=== PATIENT | female | born 1975 | race Caucasian/White ===

== ENCOUNTER 2019-05-07 10:26 | Emergency (ER) | payer MEDICARE, MEDICAID, SELFPAY ==
[2019-05-07 10:57] VITALS: BP 140/107; PULSE 101; RESP 16; TEMP 37; O2SAT 97
--- NOTE | 2019-05-07 11:33 | ED.GENADULT ---
HPI - General Adult General Chief complaint: Ear Stated complaint: EARACHE/EYE DRAINAGE Time Seen by Provider: 05/07/19 11:34 Source: patient and RN notes reviewed Mode of arrival: ambulatory Limitations: no limitations History of Present Illness HPI narrative: This is a 43 years old female presented office for evaluation of earpain for a fewdays. Pain is worse today with decrease hearing. She was diagnosed with influenza 4 days ago. Stated she had influenza vaccine in January and still get the flu. She does not smoke.She has been alternate Tylenol and ibuprofen for her symptoms with minimal relief. Related Data Home Medications Medication Instructions Recorded Confirmed aripiprazole 10 mg tablet 10 mg PO DAILY 04/07/19 05/07/19 dextroamphetamine-amphetamine 30 30 mg PO DAILY 04/07/19 05/07/19 mg tablet hydrocodone 10 mg-acetaminophen 1 tablet PO Q6-8H PRN tablet 04/07/19 05/07/19 325 mg tablet tizanidine 4 mg tablet 4 mg PO TID PRN 04/07/19 05/07/19 venlafaxine 75 mg tablet 150 mg PO BID tablet 04/07/19 05/07/19 Allergies Allergy/AdvReac Type Severity Reaction Status Date / Time PROPOXYPHENE NAPSYLATE Allergy Unknown SEVERE Uncoded 05/07/19 10:51 NAUSEA AND RASH Review of Systems Review of Systems: Narrative: CONSTITUTIONAL: Denies fever EYES: Denies visual changes, redness, discharge however she reports matted eyelashes when she woke up in the morning ENT: Denies rhinorrhea, congestion, sore throat, otalgia. CARDIOVASCULAR: Denies chest pain, palpitation, edema. RESPIRATORY: Denies dyspnea, wheezing. Reports a little cough GASTROINTESTINAL: Denies abdominal pain, nausea, vomiting, diarrhea. GENITOURINARY: Denies urinary symptoms or discharge SKIN: Denies rash MUSCULOSKELETAL: Denies acute back pain NEUROLOGIC: Denies lightheaded PMFSH Family History Family History Mother Hypertension Family history of diabetes mellitus in first degree relative Family history of heart disease in male family member before age 55 Diabetes mellitus Family history of cardiovascular disease, Onset Age: 53 Acute myocardial infarction, Onset Age: 53 Family history of coronary artery disease, Onset Age: 53 Family history of type 2 diabetes mellitus, Onset Age: 53 Patient's mother is , Onset Age: 53 Father Diabetes mellitus, Onset Age: 72 Hypertension, Onset Age: 72 Family history of cardiovascular disease, Onset Age: 72 Patient's father is in good health Family history of primary malignant neoplasm of liver Other Cerebrovascular accident Family history of allergic disorder Family history of malignant neoplasm Social History Social History Smoking status: Never smoker Second hand tobacco smoke exposure: No Alcohol intake: current Comments At time of signature, I agree with nursing past medical, surgical, social and family history. There is no relevant family history pertinent to the presenting complaint. Exam Narrative: Exam Narrative: GENERAL: This is a well-nourished, well-developed patient, in no apparent distress. EYES: SHAMIR. EMOI. Sclera clear/white without discharge. Vision is grossly intact. EARS: External ears normal, auditory canals clear and without drainage, right TM noted fluid level. Left TM bulging and erythema without perforation. Hearing grossly intact. NOSE: External nose normal with no obvious nasal discharge, nares without redness, no rhinorrhea. THROAT: Mucous membranes moist, posterior pharynx slight erythema and edematous NECK: Neck supple, non-tender without lymphadenopathy, masses or thyromegaly. CARDIOVASCULAR: Regular rate and rhythm without murmurs, gallops, or rubs. RESPIRATORY: Clear to auscultation. Breath sounds equal bilaterally. No wheezes, rales, or rhonchi. GASTROINTESTINAL: Abdomen soft, non-tender, nondistended. Ina
== END 2019-05-07 11:51 | disposition home or self-care (01) ==
PROVIDERS: Emergency Provider Nurse Practitioner; PCP Internal Medicine
DX: H66.92 Otitis media, unspecified, left ear (principal); I10 Essential (primary) hypertension; G35 Multiple sclerosis; E03.9 Hypothyroidism, unspecified; F90.9 Attention-deficit hyperactivity disorder, unspecified type; F31.9 Bipolar disorder, unspecified
CPT/HCPCS: 99213; G0463

== ENCOUNTER 2020-02-05 12:36 | Outpatient (CLI) | payer MEDICARE, MEDICAID, SELFPAY ==
--- NOTE | ~2020-02-05 | MMUS_ITS ---
EXAMINATION: MM diagnostic radha BI w geovanna, US breast RT limited HISTORY: Pain in the upper outer quadrant of the right breast and one episode of right nipple dischar ge TECHNIQUE: Craniocaudal, mediolateral, and mediolateral oblique 3-D tomosynthesis images of the breas ts were performed and synthetic 2-D images were generated. CAD analysis was submitted and interpreted . High resolution limited right breast ultrasound was performed. COMPARISON: 03/31/2017, 12/17/2014 BREAST PARENCHYMAL COMPOSITION: The breasts are almost entirely fatty. FINDINGS: MAMMOGRAPHIC FINDINGS: Focal asymmetry in the middle third of the upper outer quadrant of the right breast persists but is d ecreased in size since the comparison examinations. No suspicious mass, calcification, or architectur al distortion are identified. There is no mammographic correlate for the patient's reported right noble ast pain. ULTRASOUND: There is no evidence of focal suspicious solid or cystic lesion in the vicinity of the patient's righ t breast pain. Cysts measuring 5 mm and 4 mm are present at the 11:00 location 6 cm from the nipple. IMPRESSION: 1. No suspicious mammographic or sonographic correlate is identified for the patient's reported right breast pain and nipple discharge Further evaluation at this time should be based on clinical assessm ent. Continued follow-up physical examination is recommended. 2. Recommend routine screening mammography in one year. BI-RADS Category 2: Benign finding(s). Reviewed, dictated and finalized at location A. INAL BLOCK ASSEMBLER IMPRESSION: 1. No suspicious mammographic or sonographic correlate is identified for the junior benítez's reported right breast pain and nipple discharge Further evaluation at t his time should be based on clinical assessment. Continued follow-up physical e xamination is recommended. 2. Recommend routine screening mammography in one year. BI-RADS Category 2: Benign finding(s).
== END 2020-02-05 12:37 | disposition home or self-care (01) ==
PROVIDERS: PCP Obstetrics & Gynecology; Visit Provider Obstetrics & Gynecology
DX: N64.4 Mastodynia (principal)
CPT/HCPCS: 76642; 77062; 77066; G0279

== ENCOUNTER 2020-02-08 14:11 | Outpatient (CLI) | payer MEDICARE, MEDICAID, SELFPAY ==
[2020-02-11 16:16] LABS: Amphetamines negative; Barbiturates negative; Benzodiazepines negative; Cocaine Metabolites negative; Marijuana Metabolites negative; PCP negative
== END 2020-02-08 14:12 | disposition home or self-care (01) ==
LOC: ANHLAB 14:15
PROVIDERS: PCP Obstetrics & Gynecology
DX: Z79.899 Other long term (current) drug therapy (principal)
CPT/HCPCS: 80307

== ENCOUNTER 2020-03-27 11:38 | Outpatient (CLI) | payer MEDICARE, MEDICAID, SELFPAY ==
--- NOTE | ~2020-03-27 | XR_ITS ---
EXAMINATION: XR cervical spine 4-5V EXAM DATE: 03/27/2020 12:08 INDICATION: Radiculopathy lumbar and cervical spine. TECHNIQUE: Cervical spine frontal, lateral, lateral swimmers, and open-mouth odontoid projections. C omparison is made to prior examination from 10/12/2008. FINDINGS: Mild disc disease C4-5. The vertebral bodies are aligned in the AP dimension. Mild to mode rate cervical facet arthropathy. Mild cervical dextroscoliosis. Prevertebral soft tissue and pre-dens space are within normal limits. The odontoid process is intact. The lateral masses of C1 line up wi th C2. Mild progression spondylosis and scoliosis compared to 2008. IMPRESSION: Mild to moderate cervical arthropathy. Mild dextroscoliosis. Reviewed, dictated and finalized at location A. E EDUCATOR
--- NOTE | ~2020-03-27 | XR_ITS ---
EXAMINATION: XR lumbar spine 2-3V EXAM DATE: 03/27/2020 12:09 INDICATION: Lumbar radiculopathy. TECHNIQUE: Lumber spine frontal, lateral, lateral L5-S1 projections for interpretation. There is no prior study for comparison. FINDINGS: There is mild to moderate L5-S1 disc disease with 3 mm anterolisthesis L5 on S1. Mild disc disease of the upper lumbar spine. No spondylolysis. There is moderate facet arthropathy at L4-5, mi ld at the other lumbar levels. Sacrum, sacroiliac joints, sacral arcuate lines are intact. Paraspinal soft tissue is unremarkable. Neural foramen appear widely patent. IMPRESSION: 1. Mild to moderate lumbar spondylosis. 2. L5-S1 grade 1 anterolisthesis. Reviewed, dictated and finalized at location A. NG SUPPORT WORKER
== END 2020-03-27 11:39 | disposition home or self-care (01) ==
PROVIDERS: Visit Provider Pain Medicine Interventional Pain Medicine
DX: Z79.891 Long term (current) use of opiate analgesic (principal); Z13.89 Encounter for screening for other disorder; M47.26 Other spondylosis with radiculopathy, lumbar region
CPT/HCPCS: 72050; 72100

== ENCOUNTER 2021-09-18 15:19 | Outpatient (CLI) | payer MEDICARE, MEDICAID, SELFPAY ==
--- NOTE | ~2021-09-18 | XR_ITS ---
XR lumbar spine 2-3V DATE: 09/18/2021 15:53 INDICATION: Right back pain, radiculopathy. TECHNIQUE: AP, lateral, coned lateral lumbosacral views COMPARISON: 06/07/2017 PA and lateral chest FINDINGS: There are 4 functional lumbar vertebra, due to sacralized L5.. The lumbar vertebrae are nor deepali aligned. No fracture or bone destruction or spondylolisthesis. Moderate degenerative disc disease at L4-sacralized L5. Remaining lumbar interspaces are relatively well preserved. Degenerative spurring at the lower lumbar facet joints. The sacroiliac joints are intact. IMPRESSION: Sacralized L5 Moderate degenerative disc disease and apophyseal joint spurring at L4-5 Reviewed, dictated and finalized at location B.
--- NOTE | ~2021-09-18 | XR_ITS ---
EXAMINATION:XR cervical spine 4-5V DATE: 09/18/2021 15:54 INDICATION: Neck pain TECHNIQUE: AP, lateral, lateral swimmers and odontoid views of the cervical spine are provided. COMPARISON: None FINDINGS: There are 2 mm of anterolisthesis of C4 on C5 and C5 on C6. There is mild loss of intervert ebral disc space height at C4-5. No fracture is identified. The vertebral body heights are maintained . There is mild to moderate multilevel facet and uncovertebral joint osteoarthritis. Prevertebral sof t tissues are normal. IMPRESSION: 1. Mild to moderate cervical spondylosis without acute findings or significant interval change. Reviewed, dictated and finalized at location F.
== END 2021-09-18 15:20 | disposition home or self-care (01) ==
PROVIDERS: PCP Physician Assistant; Visit Provider Pain Medicine Interventional Pain Medicine
DX: Z79.891 Long term (current) use of opiate analgesic (principal); G89.4 Chronic pain syndrome; Z13.89 Encounter for screening for other disorder; M51.36 Other intervertebral disc degeneration, lumbar region; M47.22 Other spondylosis with radiculopathy, cervical region
CPT/HCPCS: 72050; 72100

== ENCOUNTER 2023-04-06 12:03 | Outpatient (CLI) | payer MEDICARE, MEDICAID, SELFPAY ==
--- NOTE | ~2023-04-06 | XR_ITS ---
Lumbosacral Spine: AP and lateral views Clinical History: Pain Findings: The normal lordotic curve is maintained. No fracture evident. Minimal grade 1 anterolisthes is of L4 over L5 present. There is mild facet arthropathy at the lower lumbar spine. The intervertebr al disc spaces are preserved. The sacroiliac joints are normally outlined. Impression: Minimal grade 1 anterolisthesis of L4 over L5. Mild facet arthropathy, as above. Reviewed, dictated and finalized at location M. Y FEED WORKER Impression: Minimal grade 1 anterolisthesis of L4 over L5. Mild facet arthropathy, as above.
--- NOTE | ~2023-04-06 | XR_ITS ---
Cervical Spine: AP, lateral, open-mouth views Clinical History: Pain Findings: No fracture evident. There is 4 mm anterolisthesis of C4 over C5. There is moderate to adva nced degenerative disc narrowing at C6-C7. The remaining intervertebral disc spaces are well maintain ed. Pre-vertebral soft tissues are unremarkable. Impression: 4 mm anterolisthesis of C4 over C5. Moderate to advanced degenerative disc narrowing at C6-C7. Reviewed, dictated and finalized at location . CTOR BROADCAST Impression: 4 mm anterolisthesis of C4 over C5. Moderate to advanced degenerative disc narrowing at C6-C7.
== END 2023-04-06 12:04 | disposition home or self-care (01) ==
PROVIDERS: PCP Pain Medicine Interventional Pain Medicine; Visit Provider Pain Medicine Interventional Pain Medicine
DX: M54.17 Radiculopathy, lumbosacral region (principal); M54.12 Radiculopathy, cervical region; M43.16 Spondylolisthesis, lumbar region; M48.02 Spinal stenosis, cervical region
CPT/HCPCS: 72040; 72100

== ENCOUNTER 2024-07-13 17:11 | Outpatient (CLI) | payer MEDICARE, SELFPAY ==
--- NOTE | ~2024-07-13 | XR_ITS ---
HISTORY: PAIN IN KNEE, HIP, RADICULOPATHY OF CERVICAL AND LUMBOSACRAL COMPARISON: 04/06/2023 TECHNIQUE: 3 views of the cervical spine were performed FINDINGS: Visualization of the cervical spine to the inferior endplate of C6. Straightening of the normal curvature of the cervical spine is identified. 2.4 mm of anterolisthesis of C4 over C5 with 4.1 mm of anterolisthesis of C5 over C6. No prevertebral soft tissue swelling is appreciated. No acute compression fracture is noted. The dens is equidistant between the pillars, without asymmetry. Air column within the trachea is midline. IMPRESSION: Progression of degenerative disease within the cervical spine, as detailed above. Examination is limited as the cervical spine is only visualized to the inferior endplate of C6, and a t the patient's jewelry was not removed. Cross-sectional imaging is recommended, if the patient is clinically able, preferably with MRI. Reviewed, dictated and finalized at location A. IMPRESSION: Progression of degenerative disease within the cervical spine, as detailed abov e. Examination is limited as the cervical spine is only visualized to the inferior endplate of C6, and at the patient's jewelry was not removed. Cross-sectional imaging is recommended, if the patient is clinically able, pref erably with MRI.
--- NOTE | ~2024-07-13 | XR_ITS ---
HISTORY: KNEE PAIN COMPARISON: 08/24/2016 TECHNIQUE: 3 views of the right knee were performed FINDINGS: No acute or subacute fracture, erosion, lytic or sclerotic lesion. Medial tibiofemoral joint space narrowing is identified, demonstrating progression from prior. No suprapatellar joint effusion is identified. The infrapatellar joint space is clear. IMPRESSION: Degenerative disease, without acute fracture. Reviewed, dictated and finalized at location A.
--- NOTE | ~2024-07-13 | XR_ITS ---
HISTORY: PAIN IN KNEE, HIP, RADICULOPATHY OF CERVICAL AND LUMBOSACRAL COMPARISON: 04/06/2023 TECHNIQUE: 2 view lumbar spine. FINDINGS: Grade 1 anterolisthesis of L4 over L5. Grade 1 anterolisthesis of L5 over S1 (an interval change). Remaining lumbar vertebral bodies are otherwise normally aligned. There are 5 non-rib bearing lumbar vertebral bodies. Disc spaces and vertebral body heights are well maintained. There are no lytic or sclerotic lesions. Paraspinal soft tissues are unremarkable. Significant facet arthropathy is noted, specifically within the lower lumbar spine demonstrating prog ression from prior examination. IMPRESSION: Grade 1 anterolisthesis of L4 over L5 and L5 over S1. Significant facet arthropathy demonstrating progression from prior examination. Reviewed, dictated and finalized at location A.
--- NOTE | ~2024-07-13 | XR_ITS ---
CORRECTED REPORT corrected examination description [facility] 07/14/24 This report was recreated on 07/14/24. Original report was HISTORY: PAIN IN KNEE, HIP, RADICULOPATHY OF CERVICAL AND LUMBOSACRAL COMPARISON: None TECHNIQUE: 3 views of the left hip FINDINGS: No acute fracture or dislocation is identified. Superior lateral narrowing of the femoral acetabular joint space without sclerosis is present suggesting mild osteoarthritis. Degenerative disease within the lower lumbar spine. Age-appropriate mineralization. IMPRESSION: Findings suggesting mild osteoarthritis. No acute fracture or dislocation Reviewed, dictated and finalized at location A. MTDD IMPRESSION: Findings suggesting mild osteoarthritis. No acute fracture or dislo cation
--- NOTE | ~2024-07-13 | XR_ITS ---
HISTORY: LUMBAR/SACRAL PAIN COMPARISON: 08/24/2016 TECHNIQUE: 2 views of the right hip along with an AP view of the pelvis FINDINGS: No acute fracture or dislocation is identified. Trace superior lateral sclerosis of the femoral acetabular joint space is present consistent with ost eoarthritis. Sclerosis and vacuum phenomena is present within the right SI joint. Degenerative disease within the visualized portion of the lower lumbar spine. Age-appropriate mineralization. Redemonstration of decreased femoral head/neck offset anterolaterally, which may be seen with femoral acetabular impingement. IMPRESSION: Findings which may be represent femoral acetabular impingement for which clinical correl ation is needed. Degenerative disease without acute fracture or dislocation Reviewed, dictated and finalized at location A. IMPRESSION: Findings which may be represent femoral acetabular impingement for which clinical correlation is needed. Degenerative disease without acute fracture or dislocation
--- NOTE | ~2024-07-13 | XR_ITS ---
HISTORY: PAIN IN KNEE, HIP, RADICULOPATHY OF CERVICAL AND LUMBOSACRAL COMPARISON: None TECHNIQUE: 3 views of the left knee were performed FINDINGS: No acute or subacute fracture, erosion, lytic or sclerotic lesion. Medial tibiofemoral joint space narrowing is identified. No suprapatellar joint effusion is identified. The infrapatellar joint space is clear. IMPRESSION: Degenerative disease without acute fracture. Reviewed, dictated and finalized at location A.
== END 2024-07-13 17:12 | disposition home or self-care (01) ==
PROVIDERS: Visit Provider Pain Medicine Interventional Pain Medicine
DX: M54.12 Radiculopathy, cervical region (principal); M54.17 Radiculopathy, lumbosacral region; Z79.891 Long term (current) use of opiate analgesic; M50.30 Other cervical disc degeneration, unspecified cervical region; M17.0 Bilateral primary osteoarthritis of knee; M51.369 Other intervertebral disc degeneration, lumbar region without mention of lumbar back pain or lower extremity pain
CPT/HCPCS: 72040; 72100; 73502; 73562